=== PATIENT | male | born 1985 | race Caucasian/White ===

== ENCOUNTER 2023-12-14 18:37 | Outpatient (REF) | payer BC, SELFPAY | END 2023-12-14 18:38 | disposition home or self-care (01) | LOC: LBN 18:37 | PROVIDERS: Visit Provider Nurse Practitioner Family | DX: L08.9 Local infection of the skin and subcutaneous tissue, unspecified (principal); T14.90XA Injury, unspecified, initial encounter | CPT/HCPCS: 87077; 87070; 87205 ==